=== PATIENT | female | born 1980 | race Caucasian/White ===

== ENCOUNTER 2021-10-17 15:07 | Outpatient (CLI) | payer OTHER ==
[2021-10-17 15:56] VITALS: BP 122/89
--- NOTE | 2021-10-17 15:56 | SLEEP CARE CONSULTATION ---
Information from patient questionnaire entered by Leon Townsend MA. I have reviewed and concur with the information entered by Leon Townsend MA. This document represents the service I personally performed and the decisions made by , Griselda Leblanc ARNP. History of Present Illness Service Date and Time: 10/17/2021 1507 Reason for Visit: New patient (ONSET 06/10/2021,) Chief Complaint: reports: Unrefreshed sleep, Excessive daytime sleepiness, Fatigue Date of Onset: 8 MONTHS worsening; in general she has had daytime fatigue all her life Usual bedtime: 10 PM Time it takes to fall asleep: 15 MINUTES Snores at night: No Observed to quit breathing while asleep: No Sleeps alone due to snoring: No Number of times waking at night: 2-3 Reasons for waking at night: reports: Bathroom, Other (unknown). denies: Choking, Gasping for air Toss, Turn, or Twitch while sleeping: Yes Recalls having dreams: Yes Usually gets out of bed at: 0630 Feels refreshed in the morning: No Morning headache: Yes (2 times a week; last hours to all day) Sleepy or fatigued during the day: Yes Ever fallen asleep while driving: Yes (drowsy driving; near misses but no accidents) Takes day naps: Yes (at least 1 daily, sometimes more; avg 15 mins to 1 hr or so) Dreams during day naps: Yes Prior sleep studies: Yes Year and Where: 2017 [facility] Type of Sleep Study: Polysomnography Additional HPI information: I had the pleasure of seeing GUSTAVO BHATIA today regarding the possibility of her having a sleep disorder. Her current complaints are unrefreshed sleep, fatigue and excessive daytime sleepiness. She denies snoring or pauses in breathing noted with sleeping. She denies choking or gasping in her sleep. She has woke up with headaches in the morning and also after taking naps. Patient states she has always been able to fall asleep quickly anywhere. She states in the last 8 to 9 months it seems to be getting worse to where she will take multiple naps to get through the day. She states the other day she had to take her daughter somewhere and while she was waiting she fell asleep in the car for about an hour or so. Her daughter came out and then she took her to another appointment and she fell asleep in the car again for another hour. She states this is becoming more of the norm. She will take a nap in her car at work during her lunch hour and also take a nap when she gets home from work so that she can be up before going to bed. She states she has had a sleep study a couple of years ago that was negative. She states she is falling asleep quickly and will dream immediately. She does not wake up feeling rested. She is groggy and exhausted feeling during the day. She is usually calculating when she can sleep next. Her mother has sleep apnea and is using a CPAP machine. - Parasomnia Symptoms Ever been unable to move upon waking from sleep: Yes (just once) Walks in sleep: No Talks in sleep: Yes Ever acted out dreams in sleep: No Ever felt weak in the knees when startled or emotional: No Bothered by creepy, crawly, restless sensations in legs: No Problems with memory or concentration: Yes (both) Subjective Initial [place] Sleepiness Scale score: 20 (10/17/2021) Past Medical History Past Medical History: reports: Anxiety, Depression, Mood disorder (PTSD, OCD) Social History The patient's occupation is a [employer]. Patient is and lives in . Have you smoked in the past 12 months: Yes Cigarettes per day (20/pack): 1 (VAPE/ QUIT CIG. ) Years of smokin Smoking Pack Years: 0 Alcohol use: Yes Alcohol amount and frequency: 1-2 X WEEK Caffeine amount and frequency: 1-2 X DAILY Family History Family history of sleep disordered breathing: Yes Family Hx Sleep Apnea: Mother: Sleep apnea - Treated Allergies and Home Medications Known drug allergies: No Drug allergies reviewed: Yes (NKDA) Home medication list reviewed: Yes Allergy and home medication list: Medications: Wellbutrin Sertraline Review of Systems Weight gain over past 5 years: 35 lb Urinary: reports: incontinence Neurological: reports: headaches Psychiatric: reports: anxiety, depression, other (PTSD/OCD) Ear/Nose/Throat: reports: wisdom teeth removed. denies: injury to nose, tonsillectomy Endocrine: reports: sluggishness Musculoskeletal: reports: muscle pain or cramping Immunologic: reports: sneezing, allergies to food or environment (seasonal) Physical Exam Vital signs obtained and entered by: NICK NG Blood Pressure: 122/89 (RESP 18, PULSE 64, RIGHT, ) Cuff size: wrist Heart Rate: 66 O2 Saturation: 97 (PAPER MASK) Height: 5 ft 3.5 in Weight: 183 lb (PT CLOTHES) Body Mass Index: 31.8 BMI Classification: Obese Neck circumference: 14 (INCHES) Mouth and throat: normal Soft palate: normal Hard palate: normal Uvula: normal Uvula visualization: 50% Mallampati Class II Tongue: enlarged in size with teeth le on lateral edges Tonsils: small Neck: normal w/o lymphadenopathy or thyromegaly Heart: regular rate and rhythm Lungs: clear bilaterally Impression and Plan 1. Suspected Obstructive Sleep Apnea-Hypopnea Syndrome, as suggested by a history of morning headache, frequent awakening during the night, unrefreshed sleep, cognitive impairment, and excessive daytime sleepiness. Narrow oropharynx and obesity are common predisposing factors for obstructive sleep apnea-hypopnea syndrome. I recommend proceeding to polysomnography to confirm the diagnosis and to assess severity. If the patient has significant sleep disordered breathing, a manual CPAP titration study will also be performed to find the optimal treatment pressure. I informed the patient of what the sleep studies involve and after some discussion, obtained agreement to proceed. The pathophysiology of obstructive sleep apnea-hypopnea syndrome was discussed with the patient and health risks of cardiovascular and cerebrovascular disease if not treated. Risks of drowsy driving discussed in detail and patient advised to avoid long distance driving and to anchor tack puller at the first sign of drowsiness. Patient agreed to plan. * Schedule polysomnography * Avoid long distance driving or driving when feeling sleepy. * Avoid alcohol, sedative and muscle relaxant around bedtime. * Attempt to lose weight. * Review instructions provided by trained office staff on how to prepare for the sleep study. * Return for follow-up after sleep study completed. Counseling Topics: Weight loss health impact Visit Type: In Office Time Spent with Patient (minutes): 31 Provider Statement: I spent 100% of the Face to Face Visit with the patient with greater than 50% spent counseling the patient and coordination of care.
== END 2021-10-17 15:08 | disposition home or self-care (01) ==
LOC: SC 15:07
PROVIDERS: ATTEND Nurse Practitioner Family
DX: R51.9 Headache, unspecified (principal); G47.8 Other sleep disorders; G47.10 Hypersomnia, unspecified; F17.290 Nicotine dependence, other tobacco product, uncomplicated; E66.9 Obesity, unspecified; Z68.31 Body mass index [BMI] 31.0-31.9, adult
CPT/HCPCS: 99203; 99212

== ENCOUNTER 2021-11-12 10:50 | Outpatient (CLI) | payer OTHER ==
[2021-11-12 11:58] VITALS: BP 135/82
--- NOTE | 2021-11-12 11:59 | SLEEP CARE CONSULTATION ---
Information from patient questionnaire entered by Leon Townsend MA. I have reviewed and concur with the information entered by Leon Townsend MA. This document represents the service I personally performed and the decisions made by , Griselda Leblanc ARNP. History of Present Illness Service Date and Time: 11/12/2021 1050 Initial [place] Sleepiness Scale score: 20 (10/17/2021) Current [place] Sleepiness Scale score: 17 (11/12/2021) Additional HPI information: GUSTAVO BHATIA returns for follow up and results of the recently performed polysomnography. The patient was informed of the following findings: No significant sleep disordered breathing with an average AHI of 1.6 and jorge oxygen saturation of 88%. I explained the pathophysiology behind obstructive sleep apnea. Patient does not have sleep apnea and was advised how weight gain could increase the risk of developing sleep apnea in the future. I strongly encouraged the patient to lose weight. Patient has moderate snoring. Snoring can be reduced by weight loss. Weight loss is best achieved with diet consult. Patient instructed to contact PCP for referral. Snoring can also be treated with an oral appliance from a dentist. Advised to check insurance coverage. In addition, an ENT evaluation can be do to see if other treatment is indicated. Patient was cautioned about risks of drowsy driving until sleepiness symptoms resolve. Sleep Study - Results Type of Sleep Study: Polysomnography (F/U POLY, 10/22/2021 [facility], [place]) Prior sleep studies: Yes Year and Where: 2017 [facility] Polysomnography/Home Sleep Study results: IMPRESSION: The quality of the study is good. The patient had normal sleep effic iency. The sleep architecture was normal as well. Respiratory monitoring showed no significant sleep disordered breathing (AHI = 1.6) or hypoxia (jorge oxygen saturation of 88%). The patient slept adequately in supine position (supine AHI = 3.4; nonsupine = 1.31). Snore was moderate in intensity. There was no significant periodic leg movement of sleep. Cardiac rhythm was normal sinus rhythm without significant arrhythmia. No abnormal behavior (parasomnia) observed during the night. Allergies and Home Medications Known drug allergies: No Drug allergies reviewed: Yes Home medication list reviewed: Yes (no changes) Review of Systems Review of systems same as previous: Yes (no changes) Physical Exam Vital signs obtained and entered by: NICK NG Blood Pressure: 135/82 (RESP 20, PULSE 81, RIGHT) Cuff size: wrist Heart Rate: 68 O2 Saturation: 98 (PAPER MASK) Height: 5 ft 3.5 in Weight: 195 lb (CLOTHES) Body Mass Index: 34.0 BMI Classification: Obese Impression and Plan 1. Idiopathic hypersomnia. Patient comes in today for follow-up of sleep study. Her polysomnography was negative for sleep disordered breathing. She has a history unrefreshed sleep, daytime fatigue and excessive daytime sleepiness. She states she is always been able to fall asleep quickly anywhere and has to take multiple naps to get through the day (every day). She states she will fall asleep quickly and be dreaming vividly. She states she has had sleep paralysis once that she can remember. She states when she has stressful arguments with her , she has an uncontrollable urge to go to sleep. She denies other cataplexy symptoms. She states her mother has similar problem with staying awake during the day and takes medication to reduce daytime fatigue. The patient states she is usually calculating when she can next to sleep. She does not wake up feeling refreshed either in the morning or with any naps. Patient has a initial sleep latency onset of 1.1 minutes during her recent sleep study. Patient has several indicators that she could have narcolepsy. I recommend proceeding to polysomnography with MSLT to confirm or rule out the diagnosis. Risks of drowsy driving discussed in detail and patient advised to avoid long distance driving and to sample puller at the first sign of drowsiness. Patient agreed to plan. * Schedule polysomnography with MSLT * Avoid long distance driving or driving when feeling sleepy. * Avoid alcohol, sedative and muscle relaxant around bedtime. * Attempt to lose weight. * Review instructions provided by trained office staff on how to prepare for the sleep study with MSLT. * Return for follow-up after studies completed. Counseling Topics: Weight loss health impact Visit Type: In Office Time Spent with Patient (minutes): 29 Provider Statement: I spent 100% of the Face to Face Visit with the patient with greater than 50% spent counseling the patient and coordination of care.
== END 2021-11-12 10:51 | disposition home or self-care (01) ==
LOC: SC 10:50
PROVIDERS: ATTEND Nurse Practitioner Family
DX: G47.11 Idiopathic hypersomnia with long sleep time (principal); E66.9 Obesity, unspecified; Z68.34 Body mass index [BMI] 34.0-34.9, adult
CPT/HCPCS: 99212; 99213

== ENCOUNTER 2022-03-04 20:16 | Outpatient (CLI) | payer OTHER | END 2022-03-04 20:17 | disposition home or self-care (01) | LOC: SC 20:16 | PROVIDERS: ATTEND Nurse Practitioner Family | DX: G47.61 Periodic limb movement disorder (principal) | CPT/HCPCS: 95810 ==

== ENCOUNTER 2022-03-05 06:46 | Outpatient (CLI) | payer OTHER | END 2022-03-05 06:47 | disposition home or self-care (01) | LOC: SC 06:46 | PROVIDERS: ATTEND Nurse Practitioner Family | DX: G47.10 Hypersomnia, unspecified (principal); R53.83 Other fatigue | CPT/HCPCS: 95805 ==

== ENCOUNTER 2022-03-05 08:00 | Outpatient (CLI) | payer OTHER ==
[2022-03-05 09:46] LABS: MUDS CUTOFF CONCENTRATIONS CUTOFF CONC BELOW:
[2022-03-05 12:22] LABS: AMPHETAMINE SCREEN,URINE NEGATIVE (NEGATIVE); BARBITURATE SCREEN,UR NEGATIVE (NEGATIVE); BENZODIAZEPINES SCREEN, URINE NEGATIVE (NEGATIVE); COCAINE SCREEN URINE NEGATIVE (NEGATIVE); METHADONE SCREEN, URINE NEGATIVE (NEGATIVE); METHAMPHETAMINES SCREEN, URINE NEGATIVE (NEGATIVE); OPIATE SCREEN, URINE NEGATIVE (NEGATIVE); OXYCODONE SCREEN, URINE NEGATIVE (NEGATIVE); PROPOXYPHENE SCREEN, URINE NEGATIVE (NEGATIVE); THC CANNABINOID SCREEN, URINE NEGATIVE (NEGATIVE); TRICYCLIC ANTIDEPRESSANT,URINE NEGATIVE (NEGATIVE)
== END 2022-03-05 23:59 | disposition home or self-care (01) ==
LOC: LAB.N 08:00
PROVIDERS: ATTEND Nurse Practitioner Family
DX: G47.10 Hypersomnia, unspecified (principal)
CPT/HCPCS: 80306

== ENCOUNTER 2022-03-19 14:54 | Outpatient (CLI) | payer OTHER ==
[2022-03-19 15:31] VITALS: BP 120/78
--- NOTE | 2022-03-19 15:31 | SLEEP CARE CONSULTATION ---
Information from patient questionnaire entered by Brittney Crowell. I have reviewed and concur with the information entered by Brittney Crowell. This document represents the service I personally performed and the decisions made by , Griselda Leblanc ARNP. History of Present Illness Service Date and Time: 03/19/2022 1454 Initial [place] Sleepiness Scale score: 20 (10/17/2021) Current [place] Sleepiness Scale score: 19 (03/19/2022) Additional HPI information: GUSTAVO BHATIA returns for follow up and results of the recently performed polysomnography and MSLT. The patient was informed of the following findings: No significant sleep disordered breathing with an average AHI of 1.0 and jorge oxygen saturation of 91%. She has mild PLMs and REM sleep onset delay. MSLT showed a mean sleep latency greater than 10 minutes which is a normal result. I explained the pathophysiology behind obstructive sleep apnea. Patient does not have sleep apnea and was advised how weight gain could increase the risk of developing sleep apnea in the future. I strongly encouraged the patient to lose weight. Patient was cautioned about risks of drowsy driving until sleepiness symptoms resolve. Sleep Study - Results Type of Sleep Study: Polysomnography (COMPLETD 03/05/2022) Prior sleep studies: Yes Year and Where: 2017 [facility] Polysomnography/Home Sleep Study results: PSG: IMPRESSION: The quality of the study is good. The patient had normal sleep efficiency. The sleep architecture was relatively normal as well considering the first night effect. Respiratory monitoring showed no significant sleep disordered breathing (AHI = 1.0) or hypoxia (jorge oxygen saturation of 91%). The patient slept adequately in supine position (supine AHI = 1.3; non-supine = 0.80). Snore was light to moderate in intensity. There was mild periodic leg movement of sleep not associated with sleep fragmentation. Cardiac rhythm was normal sinus rhythm without significant arrhythmia. No abnormal behavior (parasomnia) observed during the night. MSLT: Physicians Impression The patient fell asleep in 4 out of 5 naps, yielding a mean sleep latency of 11.8 minutes. There was no sleep onset REM period. Physicians Conclusion This a normal multiple sleep latency test (MSLT). Mean sleep latency > 10 minutes does not suggest significant excessive daytime sleepiness. Allergies and Home Medications Drug allergies reviewed: Yes (NKDA) Home medication list reviewed: Yes (no changes) Review of Systems Review of systems same as previous: Yes (no changes) Physical Exam Vital signs obtained and entered by: BRITTNEY Layton MA Blood Pressure: 120/78 (LEFT ARM) Cuff size: regular Heart Rate: 82 O2 Saturation: 96 Height: 5 ft 3.5 in Weight: 209 lb 3.2 oz Body Mass Index: 36.4 BMI Classification: Obese Impression and Plan 1. Periodic limb movement, mild, that did not fragment patients sleep. Periodic limb movement of sleep (PLMS) is characterized by episodes of repetitive limb movements that occur during sleep and usually involve the lower limbs. The etiology is unknown. Caffeine can aggravate PLMS and should be avoided. Sleep hygiene methods can also improve sleep as well as lifestyle changes such as regular exercise. Patient was advised that no treatment is needed at this time. If symptoms increase, then further evaluation is indicated. 2. Hypersomnia, unspecified. Patient with excessive daytime fatigue for the last 10 months that is progressively worsening. She is taking multiple naps to get through her day. Today we reviewed her last sleep study and MSLT which results came back with normal values. She does not appear to have sleep disordered breathing or narcolepsy. She does continue with hypersomnia. It may even be idiopathic in nature. She has been multiple tests for fatigue which have come back normal, according to the patient. She would like to try something to help her be more awake during the daytime. Her mother is on Modafinil for shift work disorder. After discussing options, I will start her on Modafinil 100 mg in the morning for 2 weeks. I will first have her get a test since this medication is contraindicated for due to harm. She states she has not had a period for 90 days but has tested negative twice in that time. She has not had intercourse for 6 weeks. Once we have negative test she may fill and start this medication. We discussed contraception and she feels since she and her are not very active she will use barrier contraceptive at first during trial of medication. I will have her follow up in office to neil ck response to medication 2 weeks after she starts her medication. Patient cautioned about mild side effects such as GI upset or headaches. She was to stop medication promptly if develops rash that spreads rapidly, suicidal thoughts or excessive mood swings. She voiced understanding and agreement with plan. * test to verify not * Trial of Modafinil 100 mg in morning for next 14 days if negative test * Patient to use barrier contraception during trial of medication * Attempt to lose weight * Avoid alcohol consumption near bedtime * The patient is cautioned about driving until sleepiness is completely resolved. * Return in 2 weeks for follow up. Counseling Topics: Weight loss health impact Visit Type: In Office Time Spent with Patient (minutes): 23 Provider Statement: I spent 100% of the Face to Face Visit with the patient with greater than 50% spent counseling the patient and coordination of care.
== END 2022-03-19 14:55 | disposition home or self-care (01) ==
LOC: SC 14:54
PROVIDERS: ATTEND Nurse Practitioner Family
DX: G47.61 Periodic limb movement disorder (principal); G47.10 Hypersomnia, unspecified; E66.9 Obesity, unspecified; Z68.36 Body mass index [BMI] 36.0-36.9, adult; Z32.00 Encounter for pregnancy test, result unknown
CPT/HCPCS: 36415; 84702; 99212; 99213

== ENCOUNTER 2022-03-19 15:35 | Outpatient (CLI) | payer OTHER | END 2022-03-19 15:36 | disposition home or self-care (01) | LOC: LAB.N 15:35 | PROVIDERS: ATTEND Nurse Practitioner Family | DX: Z32.00 Encounter for pregnancy test, result unknown (principal) | CPT/HCPCS: 36415; 84702 ==

== ENCOUNTER 2022-04-15 14:19 | Outpatient (CLI) | payer OTHER ==
[2022-04-15 15:11] VITALS: BP 120/72
--- NOTE | 2022-04-15 15:11 | SLEEP CARE CONSULTATION ---
Information from patient questionnaire entered by Norah Cartwright. I have reviewed and concur with the information entered by Norah Cartwright. This document represents the service I personally performed and the decisions made by me, Griselda Leblanc ARNP. History of Present Illness Service Date and Time: 04/15/2022 1419 Reason for follow up: one month (NOT ON CPAP ) Prior sleep studies: Yes Year and Where: 2017 [facility] Type of Sleep Study: Polysomnography (COMPLETD 03/05/2022) HPI additional information: GUSTAVO BHATIA was diagnosed to have Hypersomnia and returned today for Modafinil start 1 month follow-up. Sleep Study - Results Type of Sleep Study: Polysomnography (COMPLETD 03/05/2022) Prior sleep studies: Yes Year and Where: 2017 [facility] Subjective Initial [place] Sleepiness Scale score: 20 (10/17/2021) Current [place] Sleepiness Scale score: 11 (04/15/22) Allergies and Home Medications Drug allergies reviewed: Yes (NKDA) Home medication list reviewed: Yes (Cymbalta to start and stopping Sertraline) Review of Systems Review of systems same as previous: No (numbness/tingling hands & feet; PT and Cymbalta) Physical Exam Vital signs obtained and entered by: Bunny CARTWRIGHT MA Blood Pressure: 120/72 (RIGHT ARM ) Heart Rate: 83 O2 Saturation: 97 Height: 5 ft 3.5 in Weight: 212 lb Body Mass Index: 36.9 BMI Classification: Obese Impression and Plan 1. Hypersomnia, unspecified. Patient was started on modafinil 100 mg in the morning at her last visit. In our follow-up today, she states that she has been able to do things she had not been doing like chores around the house. She states she is awake, alert able to have motivation to do things that she needs to do. She has not fallen asleep during conversations and is able to stay awake at work. She is still taking a nap about once a day for 1-2 hours in the afternoon but this is improved from multiple naps a day. She is not having to constantly looking for time to take a nap. She is also not experiencing any side effects. She is still tired in the afternoon. After discussion, I will increase her modafinil to 100 mg twice a day. She is taking her first dose at 6 AM and I advised her to take a second dose by 1:00 PM. If this is interfering with her being able to go to sleep at night she may take 200 mg of the modafinil in the morning. If she should find this dose too much, she may go back to 100 mg in the morning of the modafinil. We reviewed again any concerning side effects like rash or suicidal thoughts for which she should start stop the medication and inform us in the office. 2. Obesity, unspecified. Currently patients BMI is 36.9. Obesity increases the risk of apnea, CPAP pressure requirements and overall health risks especially cardiovascular and diabetes. Thus patient is advised to lose weight. * Change Modafinil to 100 mg twice daily, one in Morning and one in afternoon, as tolerated * Attempt to lose weight * The patient is cautioned about driving until sleepiness is completely resolved. * Return in 1-2 months for follow up. Counseling Topics: Weight loss health impact Visit Type: In Office Time Spent with Patient (minutes): 20 Provider Statement: I spent 100% of the Face to Face Visit with the patient with greater than 50% spent counseling the patient and coordination of care.
== END 2022-04-15 14:20 | disposition home or self-care (01) ==
LOC: SC 14:19
PROVIDERS: ATTEND Nurse Practitioner Family
DX: G47.10 Hypersomnia, unspecified (principal); Z79.899 Other long term (current) drug therapy; E66.9 Obesity, unspecified; Z68.36 Body mass index [BMI] 36.0-36.9, adult
CPT/HCPCS: 99212; 99213

== ENCOUNTER 2022-05-13 14:33 | Outpatient (CLI) | payer OTHER ==
[2022-05-13 15:15] VITALS: BP 120/80
--- NOTE | 2022-05-13 15:15 | SLEEP CARE CONSULTATION ---
Information from patient questionnaire entered by Brittney Crowell. I have reviewed and concur with the information entered by Brittney Crowell. This document represents the service I personally performed and the decisions made by , Griselda Leblanc ARNP. History of Present Illness Service Date and Time: 05/13/2022 1433 Reason for follow up: one month (F/U ON MODAFINIL 100MG 2 X DAILY FOR HYPERSOMNIA ) Prior sleep studies: Yes Year and Where: 2017 [facility] Type of Sleep Study: Polysomnography (COMPLETD 03/05/2022) HPI additional information: GUSTAVO BHATIA was diagnosed to have hypersomnia and returned today for one month follow-up on change in Modafinil prescription. She has been taking 100 mg Modafinil twice a day. She is staying alert throughout the day. She states is only taking 1-2 naps a week. She states there is not overwhelming need for napping like it had been in the past. Sleep Study - Results Type of Sleep Study: Polysomnography (COMPLETD 03/05/2022) Prior sleep studies: Yes Year and Where: 2017 [facility] Subjective Initial [place] Sleepiness Scale score: 20 (10/17/2021) Current [place] Sleepiness Scale score: 13 (05/13/22) Allergies and Home Medications Drug allergies reviewed: Yes (NKDA) Home medication list reviewed: Yes (Progesterone, Cymbalta, Metformin) Review of Systems Review of systems same as previous: No (PCOS, pre-diabetes) Physical Exam Vital signs obtained and entered by: BRITTNEY Layton MA Blood Pressure: 120/80 (LEFT ARM) Cuff size: regular Heart Rate: 102 O2 Saturation: 96 Height: 5 ft 3.5 in Weight: 204 lb 9.6 oz Weight change since last visit: 8 lb loss Body Mass Index: 35.6 BMI Classification: Obese Impression and Plan 1. Hypersomnia, unspecified. Patient is having less daytime sleepiness on current dose of Modafinil 100 mg twice daily. She is not having any rashes, GI upset or significant headaches. She denies increase in agitation, anxiety or depression. Patient recently started on Metformin and progesterone for PCOS. She is using barrier contraceptive to prevent . She voiced understanding of need to prevent while on Modafinil because of possible defects. She will continue Modafinil 100 mg twice a day and follow up in a year or sooner with any issues. 2. Obesity, unspecified. Currently patients BMI is 35.6. Patient has lost a little bit of weight, 3-5 pounds. Obesity increases the risk of apnea and overall health risks especially cardiovascular and diabetes. Thus patient is advised to continue to try to lose weight. Weight loss can be done with reducing portion size, reducing refined foods and balancing content with vegetables, fruit and whole grain foods. -Continue Modafinil 100mg twice a day -Continue to try to lose weight -Call this office if any problems -Return for follow up in 1 year, or sooner if concerns arise Counseling Topics: Weight loss health impact Visit Type: In Office Time Spent with Patient (minutes): 20 Provider Statement: I spent 100% of the Face to Face Visit with the patient with greater than 50% spent counseling the patient and coordination of care.
== END 2022-05-13 14:34 | disposition home or self-care (01) ==
LOC: SC 14:33
PROVIDERS: ATTEND Nurse Practitioner Family
DX: G47.10 Hypersomnia, unspecified (principal); E66.9 Obesity, unspecified; Z68.35 Body mass index [BMI] 35.0-35.9, adult
CPT/HCPCS: 99212; 99213

== ENCOUNTER 2022-11-19 13:07 | Outpatient (CLI) | payer OTHER ==
--- NOTE | 2022-11-19 17:37 | MRI Report ---
PROCEDURE: WRIST WO - RT INDICATIONS: BILATERAL CARPAL TUNNEL TECHNIQUE: Noncontrast coronal proton density fast spin echo and T2 fast spin echo with fat saturation; coronal 3-D gradient echo, axial T1 spin echo and T2 fast spin echo with fat saturation, sagittal T1 spin ech o through the wrist. COMPARISON: None. FINDINGS: Image quality: Excellent. Bones and cartilage: The carpal bones are normally aligned. No bone marrow contusions or fractures. No evidence for avascular necrosis. Overlying cartilage surfaces appear normal. Carpal ligaments: The scapholunate and lunotriquetral ligaments appear intact. In the absence of in tra-articular contrast, the extrinsic carpal ligaments are not well identified. On sagittal images, the pisohamate ligament appears intact. Triangular fibrocartilage complex: The triangular fibrocartilage appears intact. The adjacent menis kim homolog appears normal in the absence of intra-articular contrast. The extensor carpi ulnaris te ndon is mildly thickened at the level of ulnar styloid Tendons and soft tissues: There is mild palmar bowing of the flexor retinaculum. Thickened median ner ve with T2 hyperintense signal at the level of pisiform is also seen. The ulnar nerve appears normal within Guyon's canal. All six extensor tendon compartments demonstrate normal morphology, without pa thologic tendon sheath fluid. No soft tissue ganglion cysts. IMPRESSION: 1. Mild palmar bowing of flexor retinaculum with slightly thickened median nerve and internal T2 hype rintense signal consistent with patient's clinical history of carpal tunnel syndrome. 2. Mild tendinosis involving extensor carpi ulnaris tendon at the level of ulnar styloid. Rest of the wrist tendons are intact. 3. Scapholunate and lunotriquetral ligaments are intact. Irregular fibrocartilage is within normal li mits. 4. No marrow edema. No fracture or dislocation. No evidence of avascular necrosis. Reviewed by: Bill Flood MD on 11/19/2022 5:35 PM PDT Approved by: Bill Flood MD on 11/19/2022 5:35 PM PDT Station ID: [id number]
--- NOTE | 2022-11-19 17:40 | MRI Report ---
PROCEDURE: WRIST WO - LT INDICATIONS: BILATERAL CARPAL TUNNEL TECHNIQUE: Noncontrast coronal proton density fast spin echo and T2 fast spin echo with fat saturation; coronal 3-D gradient echo, axial T1 spin echo and T2 fast spin echo with fat saturation, sagittal T1 spin ech o through the wrist. COMPARISON: None. FINDINGS: Image quality: Excellent. Bones and cartilage: The carpal bones are normally aligned. No bone marrow contusions or fractures. No evidence for avascular necrosis. Overlying cartilage surfaces appear normal. Carpal ligaments: The scapholunate and lunotriquetral ligaments appear intact. In the absence of in tra-articular contrast, the extrinsic carpal ligaments are not well identified. On sagittal images, the pisohamate ligament appears intact. Triangular fibrocartilage complex: The triangular fibrocartilage appears intact. The adjacent menis kim homolog appears normal in the absence of intra-articular contrast. The extensor carpi ulnaris te ndon is normal in location and morphology. Tendons and soft tissues: Mild palmar bowing of flexor retinaculum with slightly enlarged median nerv e and internal T2 hyperintense signal is seen. No significant soft tissue edema is noted within carpa l tunnel. The ulnar nerve appears normal within Guyon's canal. All six extensor tendon compartments demonstrate normal morphology, without pathologic tendon sheath fluid. No soft tissue ganglion cyst s. IMPRESSION: 1. Finding is consistent with clinical diagnosis of mild carpal tunnel syndrome. 2. No marrow edema. No fracture or dislocation. No evidence of avascular necrosis. 3. Extensor and flexor tendons are grossly intact. 4. Scapholunate and lunotriquetral ligaments are intact. The triangular fibrocartilage complex is int act. Reviewed by: Bill Flood MD on 11/19/2022 5:39 PM PDT Approved by: Bill Flood MD on 11/19/2022 5:39 PM PDT Station ID: [id number]
== END 2022-11-19 13:08 | disposition home or self-care (01) ==
LOC: DI 13:07
PROVIDERS: ATTEND Student in an Organized Health Care Education/Training Program
DX: G56.03 Carpal tunnel syndrome, bilateral upper limbs (principal)

== ENCOUNTER 2023-08-29 04:12 | Emergency (ER) | payer OTHER ==
--- NOTE | 2023-08-29 04:18 | ED Physician Documentation ---
PD HPI HEENT - Stated complaint Stated Complaint: LT EAR PX - Chief complaint Chief Complaint: Heent - History obtained from History obtained from: Patient - Additional information Additional information: HPI from patient. Patient c/o 3 days of gradual onset, steadily worsening left ear pain. Denies trauma/injury, denies fever, denies discharge. She had similar symptoms last year, was seen at another facility and prescribed ear drops; patient says they were antibiotic drops but cannot recall the specific prescription. She still has the drops at home and has been using them over past 2 days without improvement. Review of Systems Constitutional: denies: Fever, Chills, Sweats Ears: reports: Ear pain Throat: denies: Sore throat PD PAST MEDICAL HISTORY - Past Medical History Past Medical History: No - Present Medications Home Medications: Ambulatory Orders Medication Instructions Recorded Confirmed HYDROcod/ACETAM 5/325 [Crandall 5/325] 1 - 2 tablet PO Q6H PRN #10 tablet 08/29/23 Progesterone,Micronized 10 gm PO 08/29/23 [Progesterone Micronized] - Allergies Allergies/Adverse Reactions: Allergies Allergy/AdvReac Type Severity Reaction Status Date / Time No Known Drug Allergies Allergy Verified 08/29/23 04:21 PD ED PE NORMAL - Vitals Vital signs reviewed: Yes - General General: Alert and oriented X 3, No acute distress, Well developed/nourished PD ED PE EXPANDED - HEENT HEENT: Other (left EAC is erythematous and edematous with obscured TM due to edema. No discharge. Normal right TM and right EAC) Results - Vitals Vitals: Vital Signs - 24 hr 08/29/23 04:15 Temperature 36.3 C L Heart Rate 85 Respiratory 16 Rate Blood Pressure 114/63 O2 Saturation 98 Oxygen O2 Source Room air PD Medical Decision Making - ED course Complexity details: considered differential, d/w patient ED course: H+P c/w left external otitis. She has been taking ibuprofen without adequate rel ief. I placed an earwick into the left EAC with viscous lidocaine for lubrication. I then placed four drops of ciprodex into the left EAC and she is given the bottle of ciprodex to take home , instructed to place 4 drops BID x 1 week into left ear. Provided take-home pack of vicodin and rx for short course of same. Departure - Departure Disposition: Home, Self Care Clinical Impression: External otitis of left ear Qualifiers: Otitis externa type: swimmer's ear Chronicity: acute Qualified Code(s): H60.332 - Swimmer's ear, left ear Condition: Good Instructions: ED Otitis Externa Prescriptions: HYDROcod/ACETAM 5/325 [Crandall 5/325] 1 - 2 tablet PO Q6H PRN #10 tablet PRN Reason: Pain Comments: Use the antibiotic drops as follows: 4 drops in the left ear twice per day for 1 week. I have placed an ear wick in your left ear canal; this will help distribute the antibiotic drops deep into the ear canal. As the infection subsides, the inflammation/swelling will improve and the ear wick will fall out. If it has not fallen out within one week, see your primary care provider for reevaluation. I have electronically submitted a prescription for Vicodin (narcotic/opiate pain medication) to the [facility] pharmacy in [place]. I am prescribing a short course of narcotic pain medication for you. These are potentially dangerous and addictive medications that should be used carefully. These medications may constipate you. Take an zoei-xfa-ntsniir stool softener (docusate) twice daily with plenty of water while taking these medications. If you go 24 hours without a bowel movement, take [id number] miralax, per package instructions. Do not drink or drive while taking these medications. If you received narcotic or sedating medications while in the emergency department, do not drive for 24 hours. Store this medication in a safe, secure place and out of reach of children. It is a violation of federal law to give or sell this medication to another person or to use in a manner other than prescribed. The ED will not refill narcotic prescriptions, including prescriptions lost or stolen. To dispose of unwanted medications: 1. [facility] at [address] in [place] has a medication drop box. They accept prescription medications (in pill form) Wednesday through Wednesday 9:00 a.m. to 5:00 p.m. 2. The [facility] [employer] accepts prescription medications (in pill form only) for disposal year round. Call for more information. 3. Contact the [facility] for the next [facility] sponsored prescription drug collection event. , [phone], or [phone]; Forms: PCP List Discharge Date/Time: 08/29/23 05:13
[2023-08-29 04:26] VITALS: BP 114/63; O2SAT 98
[2023-08-29] MEDS: HYDROcod/ACET 5/325 Prepack 4 PO STA (04:44)
[2023-08-29] MEDS: CIPROFLOX/DEXAMETH OTIC DROPS LEFTEAR STA (04:44)
[2023-08-29] MEDS: LIDOCAINE VISCOUS 2% 15 ML UDC MM STA (04:47)
== END 2023-08-29 05:13 | disposition home or self-care (01) ==
LOC: ED 04:12
DX: H60.332 Swimmer's ear, left ear (principal)
CPT/HCPCS: 99283; A9270

== ENCOUNTER 2023-10-06 11:12 | Outpatient (CLI) | payer OTHER ==
[2023-10-06 18:10] LABS: CHOL/HDL RATIO 4.7 (<4.4); CHOLESTEROL 166 mg/dL; HDL CHOLESTEROL 35 mg/dL; LDL CHOLESTEROL,CALCULATED 106 mg/dL; TRIGLYCERIDES 125 mg/dL (48-352); VLDL CHOLESTEROL 25 mg/dL
[2023-10-07 09:10] LABS: EBV AB VCA IGG >600.0 U/mL (0.0-17.9); EBV AB VCA IGM <36.0 U/mL (0.0-35.9); EBV NUCLEAR ANTIGEN AB IGG 87.4 U/mL (0.0-17.9)
== END 2023-10-06 11:13 | disposition home or self-care (01) ==
LOC: LAB.N 11:12
PROVIDERS: ATTEND Naturopath
DX: R53.83 Other fatigue (principal); R73.03 Prediabetes
CPT/HCPCS: 36415; 80061; 83721; 86664; 86665